=== PATIENT | female | born 1970 | race Caucasian/White ===

== ENCOUNTER → 2016-11-15 | Outpatient (CLI) | payer OTHER | END | disposition short-term general hospital (02) | LOC: CLORTH 11:08 | DX: M75.02 Adhesive capsulitis of left shoulder (principal); M25.512 Pain in left shoulder; M25.511 Pain in right shoulder; M19.011 Primary osteoarthritis, right shoulder; M19.012 Primary osteoarthritis, left shoulder; M75.81 Other shoulder lesions, right shoulder; M75.41 Impingement syndrome of right shoulder; M75.82 Other shoulder lesions, left shoulder; M75.42 Impingement syndrome of left shoulder; M75.52 Bursitis of left shoulder ==

== ENCOUNTER 2017-02-07 06:15 | Day surgery (SDC) | payer OTHER ==
[~2017-02-07] VITALS: Ht 165.1 cm; Wt 108.0 kg
== END 2017-02-07 13:35 | disposition short-term general hospital (02) ==
LOC: SURGOP 06:15
PROC: 0LQ24ZZ Repair Left Shoulder Tendon, Percutaneous Endoscopic Approach (ICD-10-PCS; principal; 2017-02-07)
PROC: 0RBK4ZZ Excision of Left Shoulder Joint, Percutaneous Endoscopic Approach (ICD-10-PCS; 2017-02-07)
DX: M75.102 Unspecified rotator cuff tear or rupture of left shoulder, not specified as traumatic (principal); K21.9 Gastro-esophageal reflux disease without esophagitis; E66.9 Obesity, unspecified; Z68.41 Body mass index [BMI] 40.0-44.9, adult; Z87.891 Personal history of nicotine dependence; Z79.899 Other long term (current) drug therapy
CPT/HCPCS: C1713; J0171; J0330; J0690; J0780; J1100; J2250; J2270; J2405; J2765; J2795; J3010